=== PATIENT | female | born 1990 | race Caucasian/White ===

== ENCOUNTER → 2019-01-03 | Outpatient (CLI) | payer OTHER ==
[~2019-01-03] MED LIST: PREN-127 PO
[2019-01-03 11:59] LABS: PLATELET COUNT, AUTOMATED 325 K/uL (150-450)
== END ==
LOC: LAB 10:59
PROVIDERS: ATTEND Obstetrics & Gynecology
DX: Z34.91 Encounter for supervision of normal pregnancy, unspecified, first trimester (principal); R82.79 Other abnormal findings on microbiological examination of urine
CPT/HCPCS: 36415; 81001; 84702; 85025; 86592; 86703; 86762; 86850; 86900; 86901; 87088; 87340

== ENCOUNTER → 2019-01-13 | Outpatient (CLI) | payer OTHER | LOC: LAB 08:11 | PROVIDERS: ATTEND Student in an Organized Health Care Education/Training Program | DX: Z34.91 Encounter for supervision of normal pregnancy, unspecified, first trimester (principal) | CPT/HCPCS: 87491; 87591 ==

== ENCOUNTER → 2019-04-07 | Outpatient (CLI) | payer OTHER ==
--- NOTE | 2019-04-07 12:48 | RADIOLOGY IMAGING REPORT ---
FACILITY: [facility] - [place] PATIENT NAME: Ta Espinoza : 1990 MR: [id number] V: [id number] EXAM DATE: ORDERING PHYSICIAN: EMILI BELLO TECHNOLOGIST: Location: [facility] [place] Patient: Ta Espinoza : 1990 Visit/Account:[id number] Date of Sevice: 04/07/2019 ADDENDUM #1 ADDENDUM: BPD: 58 percentile. Head circumference: 44th percentile. Abdominal circumference: 27th percentile. Femur length: 51st percentile. Estimated due date by today's ultrasound: 08/21/2019. Report Dictated By: Deion Brooks MD at 04/07/2019 1:00 PM Report E-Signed By: Deion Brooks MD at 04/07/2019 1:01 PM ORIGINAL REPORT Obstetrical ultrasound, greater than 14 weeks. HISTORY: anatomy, 20 weeks three days by dates. COMPARISON: None. Number of living intrauterine fetuses: One. position: Vertex. Amniotic fluid volume: Normal. HIRAM: 10.3 cm. heart rate: 156 bpm. Placenta: Posterior, fundal, grade 0. Placenta previa: No. Distance from os to edge placenta: Not measured. BPD: 4.8 cm, 20 weeks five days. Head circumference: 18.1 cm, 20 weeks four days. Abdominal circumference: 14.6 cm, 20 weeks zero days. Femur length: 3.4 cm, 20 weeks five days. Average age by ultrasound: 20 weeks four days. Estimated Weight: 344 g. Cervical length: Not measured. The brain, face, four chamber heart, stomach, kidneys, ventricular outflow tracts, three vessel cord, cord insertion, placental cord insertion, bladder, cervical spine, thoracic spine, lumba r spine, sacrum, and extremities are unremarkable. The maternal cervix is closed. The maternal ovaries and pelvic vessels are not well visualized. IMPRESSION: Single live intrauterine fetus, 20 weeks four days by ultrasound criteria with appropriate size for d ates. Negative anatomical survey. Report Dictated By: Deion Brooks MD at 04/07/2019 12:41 PM Report E-Signed By: Deion Brooks MD at 04/07/2019 12:44 PM WSN:[email or web address]
== END ==
LOC: RAD 10:43
PROVIDERS: ATTEND Student in an Organized Health Care Education/Training Program
DX: Z02.9 Encounter for administrative examinations, unspecified (principal)

== ENCOUNTER → 2019-06-03 | Outpatient (CLI) | payer OTHER ==
[2019-06-03 16:40] LABS: PLATELET COUNT, AUTOMATED 246 K/uL (150-450)
== END ==
LOC: LAB 15:47
PROVIDERS: ATTEND Obstetrics & Gynecology
DX: Z34.92 Encounter for supervision of normal pregnancy, unspecified, second trimester (principal)
CPT/HCPCS: 36415; 82950; 85025